=== PATIENT | female | born 1965 | race Caucasian/White ===

== ENCOUNTER 2024-09-30 08:38 | Emergency (ER) | payer OTHER, SELFPAY ==
[2024-09-30 08:38] VITALS: BMI 23.1
[2024-09-30 08:44] VITALS: BP 135/78; PULSE 65; RESP 16; TEMP 36.6; O2SAT 100
--- NOTE | 2024-09-30 08:51 | XR_ITS ---
Examination: CT abdomen and pelvis without contrast. Coronal 3-D reconstructions. Sagittal 2-D reconstructions. Date and time of exam:September 30, 2024 10:41 AM Indications: Onset right-sided flank pain beginning this morning CTDI: vol (mGy): 6.61 DLP: (mGycm): 310 Technique: Axial images of the abdomen have been obtained, 3 mm slice thickness Intravenous contrast material has not been administered. Low dose protocols were performed. One or more of the following dose reduction techniques were used; automated exposure control, adjustment of the mA and/or KV according to patient size, use of iterative reconstruction technique. Findings: No focal liver or splenic lesions No gallstones Left renal cysts, the largest 6.5 cm Mild right hydronephrosis secondary to 4 mm distal right ureterovesical junction calculus No bowel obstruction Aorta normal size No pericecal inflammatory change Urinary bladder wall is not thickened Anteverted atrophic uterus Impression: Mild right hydronephrosis secondary to 4 mm distal right ureterovesical junction calculus
--- NOTE | 2024-09-30 08:51 | PD.EDRME ---
Rapid Medical Screening Exam RME Arrival date/time: 09/30/24 08:38 59-year-old female presents to emergency department today complains of right flank pain Chief Complaint: Back Pain/Injury Vital signs: Vital Signs Temperature 97.9 F 09/30/24 08:44 Pulse Rate 65 09/30/24 08:44 Respiratory Rate 16 09/30/24 08:44 Blood Pressure 135/78 H 09/30/24 08:44 Pulse Oximetry (%) 100 09/30/24 08:44 Oxygen Delivery Method Room Air 09/30/24 08:44
[2024-09-30] MEDS: KETOROLAC INJ 30 MG/ML VIAL IVP (09:18)
[2024-09-30 09:43] LABS: Basophils # (Auto) 0.1 Thou/mm3 (0.0-0.2); Basophils % (Auto) 1 % (0-2.5); Eosinophils # (Auto) 0.1 Thou/mm3 (0.0-0.5); Eosinophils % (Auto) 1 % (0-10); Hematocrit 39.6 % (36.0-46.0); Hemoglobin 14.5 g/dL (12.0-16.0); Immature Granulocytes % (Auto) 1 % (0-0); Immature Granulocytes Auto 0.04 Thou/mm3 (0.00-0.00); Lymphocytes # (Auto) 2.8 Thou/mm3 (1.0-4.8); Lymphocytes % (Auto) 36 % (10-50); Mean Corpuscular HGB Conc 36.6 g/dl (31.0-37.0); Mean Corpuscular Volume 90 fL (80-100); Monocytes # (Auto) 0.4 Thou/mm3 (0.0-0.8); Monocytes % (Auto) 5 % (0-12); Neutrophils # (Auto) 4.4 Thou/mm3 (1.8-7.7); Neutrophils % (Auto) 58 % (37-80); Nucleated Red Blood Cell % 0 /100 WBC (0); Platelet Count 285 Thou/mm3 (140-440); RDW Standard Deviation 40.4 fL (36.4-46.3); White Blood Count 7.7 Thou/mm3 (3.6-11.0)
[2024-09-30 09:46] VITALS: BP 140/82; PULSE 57; RESP 20; TEMP 36.3; O2SAT 99
[2024-09-30 09:57] LABS: Alanine Aminotransferase 16 U/L (10-49); Albumin, Serum 4.8 gm/dL (3.4-4.8); Albumin/Globulin Ratio 1.8 (1.2-2.2); Alkaline Phosphatase 73 U/L (46-116); Anion Gap 10 (7-16); Aspartate Amino Transferase 18 U/L (0-34); BUN/Creatinine Ratio 12 Ratio (12-20); Bilirubin,Total 0.9 mg/dL (0.3-1.2); Blood Urea Nitrogen 11 mg/dL (9-23); Calcium 9.6 mg/dL (8.3-10.6); Calcium (Corrected) 9.6 mg/dL (8.5-10.1); Chloride 104 mMol/L (98-107); Creatinine (Component) 0.9 mg/dL (0.6-1.3); Estimated Creatinine Clearance 57.4 mL/min (>60); Globulin 2.7 gm/dL (2.3-3.5); Glucose 115 mg/dL (74-106); Osmolality,Calculated 281 (275-295); Sodium 141 mMol/L (136-145); Total Protein 7.5 gm/dL (5.7-8.2); eGFR > 60 See Note
--- NOTE | 2024-09-30 10:35 | PD.EDADULT ---
ED General RME/HPI General Chief complaint: Back Pain/Injury Stated complaint: RIGHT FLANK PAIN Arrival date/time: 09/30/24 08:38 RME / HPI RME / HPI narrative: 09/30/24 08:38 RME: 59-year-old female presents to emergency department today complains of right flank pain SONIDO HPI: 59-year-old female otherwise healthy who awoke this morning with mild right flank pain that has gradually worsened through the day. Pain waxes and wanes, and is not exacerbated by movements. She denies recent trauma or heavy lifting. She woke up and did her normal elliptical exercises where the pain gradually worsened, stopping her exercise. She denies worsening of the pain with movements or matching the jamee of her elliptical movements. She does feel like it gives her the sense of urination, but the pain is nonradiating. When pain is at its peak she does have nausea without vomiting. Related Data Previous Rx's ?Medication ?Instructions ?Recorded ibuprofen 600 mg tablet 600 mg PO Q8H PRN pain #14 tabs 09/30/24 tamsulosin 0.4 mg capsule 0.4 mg PO QDAY 7 days #7 caps 09/30/24 Allergies Allergy/AdvReac Type Severity Reaction Status Date / Time Macrolide Antibiotics Allergy Unknown Verified 09/30/24 08:40 ERTHROMYCIN Allergy Unknown Uncoded 09/30/24 08:40 NKA Allergy Unknown Uncoded 09/30/24 08:40 Review of Systems Review of Systems Systems Reviewed: All systems reviewed, normal except as documented ED Exam Narrative Physical exam: GENERAL APPEARANCE: AxOx4, generally well-appearing, no acute distress. HEENT: NC, AT. MMM. EOMI, clear conjunctiva, oropharynx clear. NECK: Supple without lymphadenopathy. No stiffness or restricted ROM. HEART: Normal rate and regular rhythm, normal S1/S1, no m/r/g LUNGS: CTAB, moving air well. No crackles or wheezes are heard. ABDOMEN: Soft, nontender, nondistended with good bowel sounds heard. BACK: No midline C/T/L spine pain or deformity, No CVAT, no obvious deformity. EXTREMITIES: Without cyanosis, clubbing or edema. MUSCULOSKELETAL: Mild right paraspinal tenderness at the L3-L4 region, FROM of all major joints, no chest tenderness NEUROLOGICAL: Grossly nonfocal. Alert and oriented, moving all 4 extremities. CN not formally tested but appear grossly intact. Observed to ambulate with normal gait. Skin: Warm and dry without any rash, No hyperesthesia of the skin around the right L4-L5 region Course Quality Measures none Orders Category Date Time Status Insert IV NOW Care 09/30/24 08:[address] abdomen pelvis wo con Stat Exams 09/30/24 08:51 Completed CBC Stat Lab 09/30/24 09:20 Completed Comprehensive Metabolic Panel Stat Lab 09/30/24 09:20 Completed UA, C/S IF [Urinalysis, C/S if Indicated] Stat Lab 09/30/24 11:40 Completed Ketorolac Inj [Toradol Inj] Med 09/30/24 11:31 Discontinued 15 mg IVP X1 ONE Ketorolac Inj [Toradol Inj] Med 09/30/24 08:51 Discontinued 30 mg IVP X1 ONE Vital Signs Vital signs: Vital Signs Temperature 97.9 F 09/30/24 08:44 Pulse Rate 65 09/30/24 08:44 Respiratory Rate 16 09/30/24 08:44 Blood Pressure 135/78 H 09/30/24 08:44 Pulse Oximetry (%) 100 09/30/24 08:44 Oxygen Delivery Method Room Air 09/30/24 08:44 SpO2 100% on room air, not hypoxic MDM Patient data External records reviewed:: [facility] previous records Clinical information provided by:: patient Social determinants that could affect healthcare access:: none Patient has the following chronic illnesses:: None How is presenting disease/condition affected by chronic disease/condition?: no chronic disease Evaluation data The following diagnostics were reviewed and interpreted by me:: lab results and radiology exam(s) Lab and/or radiology exams considered but not ordered:: None Interpretation Summary: As per narrative Medications Medications considered but not ordered:: None Medication administrations:: Medication Administration History Discontinued Medications Ketorolac Tromethamine (Ketorolac Inj 30 Mg/Ml Vial) 30 mg IVP X1 ONE Stop: 09/30/24 08:52 Last Admin: 09/30/24 09:18 Dose: 30 mg Documented By: BENJAMIN Ketorolac Tromethamine (Ketorolac Inj 30 Mg/Ml Vial) 15 mg IVP X1 ONE Stop: 09/30/24 11:32 Last Admin: 09/30/24 11:38 Dose: 15 mg Documented By: DB Above Consultations Consultation(s) initiated? (list below): No Diagnosis Differential Diagnosis ED Complaint MDM: Renal colic, pyelonephritis, lumbar strain Most likely diagnosis given after review of the tests above:: See below Admission Indicated Admission indicated?: not indicated Explain why admission is indicated or not indicated:: As per narrative Admission Request Was there a request for admission?: No Disposition Plan Disposition Plan: Discharge Discharge Attestation Discharge Attestation: The patient and all family members were given an opportunity to ask questions and understood the discharge instructions. Discharge instructions specifically effects, indications for sooner follow up or return to the emergency department, and the expected course of current diagnosis. Patient condition: Stable Medical Decision Making MDM Narrative MDM Narrative: Ms. Childers presents to the emergency department with right-sided back/flank tenderness which has some associated symptoms that are consistent with renal colic, however this has not movement associated relationship it could be musculoskeletal in nature. Overall I do feel this is likely renal colic however given the overall unclear picture, CT scan of the abdomen was done which confirms a 4 mm stone at the UVJ. Patient otherwise clinically well-appearing, stone is upsized with expectant management. She is appropriate for outpatient follow-up. Urinalysis shows no signs of infection and will not require oral antibiotics. Should be treated with tamsulosin and NSAIDs with follow-up with her primary care physician. Differential Diagnosis Differential Diagnosis: Renal colic, pyelonephritis, lumbar strain Lab Data 09/30/24 09:20 09/30/24 09:20 Labs: Lab Results 09/30/24 09/30/24 Range/Units 09:20 11:40 WBC 7.7 (3.6-11.0) Thou/mm3 RBC 4.40 (4.00-5.20) Miln/mm3 Hgb 14.5 (12.0-16.0) g/dL Hct 39.6 (36.0-46.0) % MCV 90 (80-100) fL MCH 33.0 (25.0-35.0) pg MCHC 36.6 (31.0-37.0) g/dl RDW Std Deviation 40.4 (36.4-46.3) fL Plt Count 285 (140-440) Thou/mm3 Neut % (Auto) 58 (37-80) % Lymph % (Auto) 36 (10-50) % [place] % (Auto) 5 (0-12) % Eos % (Auto) 1 (0-10) % Baso % (Auto) 1 (0-2.5) % Neut # (Auto) 4.4 (1.8-7.7) Thou/mm3 Lymph # (Auto) 2.8 (1.0-4.8) Thou/mm3 [place] # (Auto) 0.4 (0.0-0.8) Thou/mm3 Eos # (Auto) 0.1 (0.0-0.5) Thou/mm3 Baso # (Auto) 0.1 (0.0-0.2) Thou/mm3 Immature Gran # (Auto) 0.04 H (0.00-0.00) Thou/mm3 Absolute Nucleated RBC 0.00 (0.00-0.00) Thou/mm3 Immature Gran % 1 H (0-0) % Nucleated RBC % 0 (0) /100 WBC Sodium 141 (136-145) mMol/L Potassium 4.0 (3.4-5.1) mMol/L Chloride 104 (98-107) mMol/L Carbon Dioxide 27.0 (20.0-31.0) mMol/L Anion Gap 10 (7-16) BUN 11 (9-23) mg/dL Creatinine 0.9 (0.6-1.3) mg/dL Estim Creat Clear Calc 57.4 L (>60) mL/min eGFR > 60 (60 - ) See Note BUN/Creatinine Ratio 12 (12-20) Ratio Glucose 115 H (74-106) mg/dL Calculated Osmolality 281 (275-295) Calcium 9.6 (8.3-10.6) mg/dL Corrected Calcium 9.6 (8.5-10.1) mg/dL Total Bilirubin 0.9 (0.3-1.2) mg/dL AST 18 (0-34) U/L ALT 16 (10-49) U/L Alkaline Phosphatase 73 (46-116) U/L Total Protein 7.5 (5.7-8.2) gm/dL Albumin 4.8 (3.4-4.8) gm/dL Globulin 2.7 (2.3-3.5) gm/dL Albumin/Globulin Ratio 1.8 (1.2-2.2) Ur Collection Type Clean Catch Urine Color Yellow (Lt Yel-Yel) Urine Clarity Clear (Clear/Hazy) Urine pH 8.5 H (5.0-7.0) Ur Specific [place] 1.023 (1.001-1.035) Urine Protein 2+ A (Neg - Trace) Urine Glucose (UA) Negative (Negative) Urine Ketones 1+ A (Negative) Urine Blood 2+ A (Negative) Urine Nitrite Negative (Negative) Urine Bilirubin Negative (Negative) Urine Urobilinogen (Auto) Negative (0.0-1.0) mg/dL Ur Leukocyte Esterase Positive (Negative) Urine RBC 144 H (0-3) /hpf Urine WBC 5 (0-5) /hpf Ur Squamous Epith Cells 1 (0-5) /hpf Urine Bacteria None (None) Ur Culture Indicated? Not Indicated Discharge Plan Plan Patient Disposition: HOME (Self Care) Prescriptions/Referrals Prescriptions/Med Rec: New tamsulosin 0.4 mg capsule 0.4 mg PO QDAY 7 Days Qty: 7 0RF ibuprofen 600 mg tablet 600 mg PO Q8H PRN (Reason: pain) Qty: 14 0RF Referrals: Som Mace MD [Primary Care Provider] - In 1 week Problem List Clinical Impression: Ureterolithiasis Patient/Caregiver Discharge Instructions Education Materials: ED Kidney Stone w/ Colic Additional Instructions: Follow-up with your primary care doctor in 3 to 5 days for recheck. You can return to the emergency department sooner if symptoms worsen or if you notice any new, concerning issues. Print Language: [place] Stand Alone Forms: Maria Eugenia Award Info., Patient Portal Info Letter
[2024-09-30] MEDS: KETOROLAC INJ 30 MG/ML VIAL 15 MG IVP (11:38)
[2024-09-30 12:00] LABS: Collection Type, Urine Clean Catch
[2024-09-30 12:05] LABS: Bilirubin,Urine Negative (Negative); Blood,Urine 2+ (Negative); Clarity,Urine Clear (Clear/Hazy); Color,Urine Yellow (Lt Yel-Yel); Culture Indicated,Urine Not Indicated; Glucose, Urine Negative (Negative); Ketones,Urine 1+ (Negative); Leukocyte Esterase,Urine Positive (Negative); Nitrite,Urine Negative (Negative); PH,Urine 8.5 (5.0-7.0); Protein,Urine 2+ (Neg - Trace); RBC,Urine 144 /hpf (0-3); Specific Gravity,Urine 1.023 (1.001-1.035); Squamous Epithelial Cell,Urine 1 /hpf (0-5); Urobilinogen,Urine Negative mg/dL (0.0-1.0); WBC,Urine 5 /hpf (0-5)
[2024-09-30 12:58] VITALS: BP 129/71; PULSE 59; RESP 16; TEMP 36.6; O2SAT 99
== END 2024-09-30 12:59 | disposition home or self-care (01) ==
PROVIDERS: Nurse Practitioner Primary Care; Emergency Provider Emergency Medicine; PCP Specialist
DX: N20.2 Calculus of kidney with calculus of ureter (principal)
CPT/HCPCS: 36415; 74176; 80053; 81001; 85025; 96374; 99284; J1885